=== PATIENT | male | born 1940 | race Caucasian/White ===

== ENCOUNTER → 2021-05-14 | Outpatient (CLI) | payer OTHER ==
[~2021-05-14] MED LIST: ASPIR 8181 MG PO; BENTYL 20 MG TA20 M1 PO; CATAPRES0.2 MG PO; CENTRUM SILVER1 EAC4 PO; CIPRO500 MG PO; COZAAR 50 MG TA50 M2 PO; IRON325 PO; LIPITOR10 MG PO; MAGOX 400400 MG PO; MOBIC7.5 MG PO; OMEGA-31000 M1 PO; OMEPRAZOLE40 MG PO; POTASSIUM20 PO
== END ==
LOC: SJCVC 14:20
PROVIDERS: ATTEND Internal Medicine
DX: R94.31 Abnormal electrocardiogram [ECG] [EKG] (principal); I44.0 Atrioventricular block, first degree; R93.1 Abnormal findings on diagnostic imaging of heart and coronary circulation; Z13.220 Encounter for screening for lipoid disorders; I12.9 Hypertensive chronic kidney disease with stage 1 through stage 4 chronic kidney disease, or unspecified chronic kidney disease; N18.9 Chronic kidney disease, unspecified; K21.9 Gastro-esophageal reflux disease without esophagitis; E78.5 Hyperlipidemia, unspecified; Z79.899 Other long term (current) drug therapy; Z88.0 Allergy status to penicillin

== ENCOUNTER → 2021-05-17 | Outpatient (CLI) | payer OTHER | LOC: SJCVCIMAG 07:42 | PROVIDERS: ATTEND Internal Medicine | DX: R93.1 Abnormal findings on diagnostic imaging of heart and coronary circulation (principal); R06.00 Dyspnea, unspecified; R51.9 Headache, unspecified; I12.9 Hypertensive chronic kidney disease with stage 1 through stage 4 chronic kidney disease, or unspecified chronic kidney disease; N18.9 Chronic kidney disease, unspecified; K21.9 Gastro-esophageal reflux disease without esophagitis; E78.5 Hyperlipidemia, unspecified; Z88.0 Allergy status to penicillin; Z79.899 Other long term (current) drug therapy ==

== ENCOUNTER → 2021-06-28 | Outpatient (CLI) | payer OTHER | LOC: SJCVCIMAG 12:50 | PROVIDERS: ATTEND Internal Medicine | DX: I07.1 Rheumatic tricuspid insufficiency (principal); I13.10 Hypertensive heart and chronic kidney disease without heart failure, with stage 1 through stage 4 chronic kidney disease, or unspecified chronic kidney disease; N18.9 Chronic kidney disease, unspecified; I25.10 Atherosclerotic heart disease of native coronary artery without angina pectoris; E78.5 Hyperlipidemia, unspecified; K21.9 Gastro-esophageal reflux disease without esophagitis; R93.1 Abnormal findings on diagnostic imaging of heart and coronary circulation; M19.90 Unspecified osteoarthritis, unspecified site; Z88.0 Allergy status to penicillin; Z79.899 Other long term (current) drug therapy ==